=== PATIENT | female | born 1985 | race Two or more races ===

== ENCOUNTER 2017-11-05 00:26 | Emergency (ER) | payer BC, OTHER ==
[~2017-11-05] VITALS: Ht 162.6 cm; Wt 70.0 kg
[2017-11-05] MEDS ORDERED: ALBUTEROL SULFATE 2.5 MG/0.5 ML NEB SOLUTION NEB ONE (00:45)
[2017-11-05] MEDS ORDERED: IPRATROPIUM BROMIDE 0.5 MG/2.5 ML NEB SOLUTION NEB ONE (00:45)
[2017-11-05] MEDS ORDERED: GuaiFENesin/D-METHORPHAN [SUGAR-FREE] 200-20MG/10 ML SYRUP UDCUP PO ONE (03:00)
[2017-11-05] MEDS ORDERED: DiphenhydrAMINE HCL 25 MG CAPSULE PO ONE (03:00)
[2017-11-05] MEDS ORDERED: ALBUTEROL SULFATE HFA 90 MCG/PUFF 8 GM INHALER IH ONE (03:00)
[2017-11-05 03:42] VITALS: BP 132/79
== END 2017-11-05 03:52 | disposition home or self-care (01) ==
LOC: EDBD 00:29 → EMS 00:29
DX: J68.0 Bronchitis and pneumonitis due to chemicals, gases, fumes and vapors (principal); F17.210 Nicotine dependence, cigarettes, uncomplicated
CPT/HCPCS: 94640; 99284; 99406; J7613; J3535